=== PATIENT | male | born 1960 | race Caucasian/White ===

== ENCOUNTER → 2017-02-07 | Outpatient (CLI) | payer BC ==
[~2017-02-07] MED LIST: ATOR-22 PO
--- NOTE | 2017-02-07 10:59 | DIAGNOSTIC IMAGING REPORT ---
R TOE(S) MIN 2 VIEWS CLINICAL HISTORY: 56 years-old Male presenting with MYXOID CYST. TECHNIQUE: Frontal, oblique, and lateral views of the right first toe were obtained. COMPARISON: None. FINDINGS: No acute fracture or malalignment. No osseous erosion. No degenerative change. No soft tissue abnormality. IMPRESSION: No osseous abnormality of the right first toe. Electronically signed by: Ventura Che M.D. 02/07/2017 10:57 AM Dictated Date/Time: 02/07/2017 10:56 AM
== END | disposition home or self-care (01) ==
LOC: C.RAD1850 10:25
PROVIDERS: ATTEND Dermatology
DX: M71.30 Other bursal cyst, unspecified site (principal)

== ENCOUNTER → 2017-02-07 | Outpatient (CLI) | payer BC | END | disposition home or self-care (01) | LOC: C.LABSPEC 16:20 | PROVIDERS: ATTEND Dermatology | DX: M71.30 Other bursal cyst, unspecified site (principal) ==